=== PATIENT | male | born 1955 | race Caucasian/White ===

== ENCOUNTER 2017-01-27 10:15 | Emergency (ER) | payer OTHER ==
--- NOTE | ~2017-01-27 | CR172 ---
[facility] A Service of [facility] RADIOLOGY TEXT RESULTS PATIENT: FLY VALDERRAMA LOCATION: SED : 51 UNIT #: [id number] AGE: [address]: IRWIN WREN SEX: M ORDER DR: [id number] [place] [id number] E MR#: [id number] #: [id number] NAME: FLY VALDERRAMA : 1955 SEX: M STUDY DATE/TIME: 01/27/2017 11:02 UNIT: SED ROOM: STUDY DESCRIPTION: CR Knee 3 Views Lt Attending Physician: (Res) Irwin Wren Ordering Physician: Staff Doctor Not On Primary Care Phys[facility] RE[facility] This report is preliminary unless electronic signature is present. EXAM Left knee, 3 views; 01/27/2017, 1102 hours. CLINICAL HISTORY Patient complains of 2-day history of left knee swelling and pain with no known injury. COMPARISON None. FINDINGS AP, cross-table lateral and sunrise views are performed. There is no definite knee joint effusion. There is tricompartmental degenerative change with joint space loss and spurring. Joint space loss is greatest medially with spurring greatest in the patellofemoral compartment. No fracture or loose body seen. IMPRESSION 1. No joint effusion or fracture. 2. Mild tricompartmental degenerative changes with greatest joint space loss medially and spurring most prominent in the patellofemoral compartment. No fracture or loose body. Dictated by... Nadine Cummings M.D. THIS IS AN ELECTRONICALLY VERIFIED REPORT Nadine Cummings M.D. at 01/28/2017 12:32 PM [email or web address]/[email or web address] TD: 01/27/2017 22:21 JOB #: [id number] [facility] A Service of [facility] RADIOLOGY TEXT RESULTS PATIENT: FLY VALDERRAMA LOCATION: SED : 51 UNIT #: [id number] AGE: [address]: IRWIN WREN SEX: M ORDER DR: MEDICAL IMAGING REPORT Page 1 of 1
[~2017-01-27 10:15] MED LIST: DILANTIN PO; PHENOBARB PO; VICODIN 5/500 T1 TAB PO
[2017-01-27] MEDS ORDERED: PHENOBARBITAL PO (10:21)
[2017-01-27] MEDS ORDERED: PHENYTOIN PO (10:22)
== END 2017-01-27 12:01 | disposition home or self-care (01) ==
LOC: SED 10:15
DX: M25.562 Pain in left knee (principal); R56.9 Unspecified convulsions; Z88.5 Allergy status to narcotic agent
CPT/HCPCS: 29530; 73562; 99283